=== PATIENT | female | born 1960 | race Caucasian/White ===

== ENCOUNTER → 2016-10-01 | Outpatient (CLI) | payer BC, SELFPAY | LOC: NM 12:31 | DX: R06.00 Dyspnea, unspecified (principal); I20.8 Other forms of angina pectoris; Z98.61 Coronary angioplasty status | CPT/HCPCS: 78452; 93017; A9502; J2785 ==

== ENCOUNTER 2020-05-10 13:36 | Emergency (ER) | payer BC ==
[~2020-05-10 13:36] MED LIST: BAYER CHEWABLE81 MG PO; CALCIUM 600 +1 EAC7 PO; CLINDAMYCIN HC300 MG PO; FENTANYL1 EACH TD; KEFLEX500 MG PO; PERCOCET 10-321 EACH PO; PLAVIX75 MG PO; PRAVASTATIN SOD80 MG PO; TOPAMAX25 MG PO; TRAZODONE HCL50 MG PO; ZANTAC150 MG PO
[2020-05-10 14:08] LABS: RED BLOOD COUNT 4.61 M/UL (4.00-5.10); WHITE BLOOD COUNT 7.3 K/UL (4.5-11.0)
[2020-05-10 14:39] LABS: BUN/CREATININE RATIO 19 (0-10)
== END 2020-05-10 16:05 | disposition left against medical advice (07) ==
LOC: ER1 13:36
PROVIDERS: Emergency Medicine
DX: R53.1 Weakness (principal); R51.9 Headache, unspecified; I10 Essential (primary) hypertension; E11.9 Type 2 diabetes mellitus without complications; F17.200 Nicotine dependence, unspecified, uncomplicated; Z86.73 Personal history of transient ischemic attack (TIA), and cerebral infarction without residual deficits; Z88.1 Allergy status to other antibiotic agents; Z88.8 Allergy status to other drugs, medicaments and biological substances; Z91.041 Radiographic dye allergy status; Z53.20 Procedure and treatment not carried out because of patient's decision for unspecified reasons
CPT/HCPCS: 70450; 71045; 80053; 82550; 82553; 83735; 84484; 85025; 85610; 85730; 93005; 99285

== ENCOUNTER → 2020-07-06 | Outpatient (CLI) | payer BC, OTHER | LOC: RAD 13:09 | DX: M54.5 Low back pain (principal); M51.36 Other intervertebral disc degeneration, lumbar region; M51.34 Other intervertebral disc degeneration, thoracic region | CPT/HCPCS: 72072; 72110 ==

== ENCOUNTER → 2020-09-28 | Outpatient (CLI) | payer BC, OTHER | LOC: KOH-I 08:30 | DX: M54.5 Low back pain (principal); M54.16 Radiculopathy, lumbar region | CPT/HCPCS: 72131 ==

== ENCOUNTER → 2021-01-03 | Outpatient (CLI) | payer BC | LOC: EXRD 08:32 | DX: R10.811 Right upper quadrant abdominal tenderness (principal) | CPT/HCPCS: 76705 ==